=== PATIENT | female | born 1975 | race Caucasian/White ===

== ENCOUNTER 2017-04-12 11:15 | Emergency (ER) | payer OTHER ==
[~2017-04-12] VITALS: Ht 165.1 cm; Wt 115.0 kg
[2017-04-12 11:23] VITALS: TEMP 37.5; Ht 165.1 cm; Wt 115.0 kg
--- NOTE | 2017-04-12 11:52 | DIAGNOSTIC IMAGING REPORT ---
CHEST ONE VIEW PORTABLE CLINICAL HISTORY: Atypical chest pain and shortness of breath COMPARISON STUDY: No previous studies for comparison. FINDINGS: The cardiac and mediastinal contours are normal. There is no evidence of focal pulmonary consolidation. There is no evidence of failure. No pleural effusions are visualized.[ IMPRESSION: No active disease in the chest. Electronically signed by: Caleb Prieto M.D. 04/12/2017 11:51 AM Dictated Date/Time: 04/12/2017 11:51 AM
[2017-04-12 11:58] LABS: HEMATOCRIT 40.2 % (37-47); MEAN CELL VOLUME 91.6 fL (80-100); MEAN CORPUSCULAR HEMOGLOBIN 30.3 pg (25-34); MEAN CORPUSCULAR HGB CONC 33.1 g/dl (32-36); MEAN PLATELET VOLUME 9.4 fL (7.4-10.4); PLATELET COUNT 358 K/uL (130-400); RED BLOOD COUNT 4.39 M/uL (4.2-5.4); WHITE BLOOD COUNT 7.82 K/uL (4.8-10.8)
[2017-04-12] MEDS ORDERED: MULT-506 PO (12:07)
[2017-04-12] MEDS ORDERED: VNTHFA/IN INH (12:07)
[2017-04-12] MEDS ORDERED: FEXO1TAB46 PO (12:07)
[2017-04-12 12:11] LABS: PARTIAL THROMBOPLASTIN RATIO 1.1; PROTHROMBIN TIME (PATIENT) 10.6 SECONDS (9.0-12.0)
[2017-04-12 12:14] LABS: CALCIUM 9.2 mg/dl (8.5-10.1); CREATININE 0.96 mg/dl (0.60-1.20); POTASSIUM 3.9 mmol/L (3.5-5.1)
[2017-04-12 12:19] LABS: ALB/GLOB RATIO 0.9 (0.9-2); CKMB/CK RATIO 0.8 (0-3.0)
[2017-04-12 12:23] VITALS: O2SAT 97
[2017-04-12 12:46] LABS: URINE APPEARANCE CLEAR (CLEAR); URINE BILIRUBIN NEG (NEG); URINE COLOR YELLOW; URINE NITRITE NEG (NEG); URINE PH 5.5 (4.5-7.5); URINE SPECIFIC GRAVITY 1.021 (1.000-1.030); UROBILINOGEN NEG (NEG)
[2017-04-12 12:53] LABS: MANUAL MICROSCOPIC REQUIRED? NO; REVIEW REQ? NO
[2017-04-12] MEDS ORDERED: METHYLPREDNISOLONE 125 MG VIAL IV STA (14:59)
[2017-04-12] MEDS ORDERED: PRED50TA PO (15:03)
[2017-04-12] MEDS ORDERED: HYDR5SYP11 PO (15:03)
[2017-04-12] MEDS ORDERED: AZITTAB PO (15:03)
--- NOTE | 2017-04-12 15:07 | EMERGENCY ROOM VISIT NOTE ---
History First contact with patient: 11:40 Chief Complaint: CARDIAC ASSESSMENT Stated Complaint: SOB/EKG CHANGES Nursing Triage Summary: pt went to [facility] for asthma exacerbation pt had chest tightness ekg done and showed abnormal ekg, ems called pt given 4 baby asa pt denies pain has hx of tendonitis every spring and gets left shoulder pain that does radiate down arm denies sob History of Present Illness Patient is a 41-year-old white female with past medical history significant for asthma who presents emergency department for evaluation by ambulance from [facility] for evaluation of EKG changes. Patient reports that her usual allergies have been bothering her for the last month, and exacerbated her asthma slightly. She states she has had a dry, nonproductive cough on and off for about a month. Her cough worsened in the last day. She reported more severe coughing fits, states she is coughing so hard that she feels like she may vomit and is "seeing stars." She had some coughing fits overnight, that left her with some upper back and midsternal soreness which she felt was muscle in nature. He states the cough is dry and nonproductive. She denies any other cold or upper respiratory symptoms. She denies any chest pain. No palpitations. She denies any radiation of pain through to her back. She denies any abdominal pain, nausea, vomiting, diarrhea, stool changes or urinary symptoms or leg pain or swelling. The patient has not traveled recently, no prolonged periods of immobilization and no oral contraceptive use. The patient went to [facility] today due to her increasing cough. She states that they did an EKG and a chest x-ray, and she was sent here because the EKG showed a "heart attack." She was medicated with 4 baby aspirin. Other than the asthma, the patient reports that she is healthy. She denies hypertension, dyslipidemia or diabetes. There is a strong family history of diabetes, and her father has passed from diabetes, heart disease, coronary artery disease and consultations from diabetes. Review of Systems Review of systems as per HPI. All other systems reviewed were negative. 10 systems reviewed. Past Medical/Surgical History Medical Problems: (1) Asthma (2) Seasonal allergies Electronic medical records are reviewed and summarized as above/below. See Problem List. Family History Diabetes mellitus FH: coronary artery disease Hypertension Social History Smoking Status: Former Smoker Marital Status: single Housing Status: lives with family Occupation Status: employed Current/Historical Medications Scheduled Azithromycin (Zithromax Z-Garry), 0 PO UD Fexofenadine Hcl (Ana), 180 MG PO DAILY Multivitamin (Multivitamin), 1 TAB PO DAILY Prednisone (Prednisone), 50 MG PO DAILY Scheduled PRN Albuterol Hfa (Ventolin Hfa), 2 PUFFS INH Q6H PRN for Shortness of Breath Hydrocodone W/ Homatropine (Hycodan 5/1.5MG 5 Ml), 10 ML PO Q4H PRN for Cough Allergies Coded Allergies: Cyclobenzaprine (Verified Allergy, Unknown, depression, 04/12/17) Physical Exam Vital Signs Date Time Temp Pulse Resp B/P Pulse Ox O2 Delivery O2 Flow Rate FiO2 04/12/17 15:37 90 20 152/81 100 04/12/17 14:18 98 20 137/85 99 04/12/17 13:01 94 04/12/17 12:33 95 20 154/86 96 Room Air 04/12/17 12:32 91 20 154/86 99 Room Air 04/12/17 12:23 97 Room Air 04/12/17 11:29 99 04/12/17 11:23 100 Room Air 04/12/17 11:23 37.5 94 20 156/99 99 Room Air Physical Exam CONSTITUTIONAL: Patient is an overweight 41-year-old white female who is awake and alert and in no acute distress. No audible wheezing or conversational dyspnea noted. EYES: Pupils equal, round, reactive to light and accommodation. EOMs intact without nystagmus. Sclera are anicteric. ENT: Tympanic membranes intact, with normal landmarks. External canals are clear. Oral and nasopharynx are clear. Mucous membranes are moist, no lesions , tongue and gums appear normal. NECK: Supple without lymphadenopathy. No thyromegaly. No meningeal signs. Full active range of motion without discomfort. CARDIOVASCULAR: Regular rate and rhythm, with normal S1 and S2, no murmur or gallop or rub is heard. No carotid bruits auscultated. No JVD. Peripheral pulses easy to palpable. RESPIRATORY: Breath sounds equal and clear to auscultation without wheezes, rales, or rhonchi heard. Full and equal chest expansion without accessory muscle use or retractions. GI: Bowel sounds are present. Abdomen is soft, nontender, nondistended. No organomegaly. No pulsatile masses. No guarding or rebound. MUSCULOSKELETAL: Full range of motion of extremities x 4 with good strength. No cyanosis, edema, joint tenderness or swelling. No deformity. INTEGUMENTARY: No lesions or rash, normal skin turgor. NEUROLOGICAL: Alert, oriented, and cooperative. Cranial nerves, sensation and strength grossly intact. Pupils round, equal, and react to light, EOMs are full. LYMPH: No lymphadenopathy. Medical Decision & Procedures ER Provider Diagnostic Interpretation: CHEST ONE VIEW PORTABLE CLINICAL HISTORY: Atypical chest pain and shortness of breath COMPARISON STUDY: No previous studies for comparison. FINDINGS: The cardiac and mediastinal contours are normal. There is no evidence of focal pulmonary consolidation. There is no evidence of failure. No pleural effusions are visualized. IMPRESSION: No active disease in the chest. Laboratory Results 04/12/17 11:45 04/12/17 11:45 Test 04/12/17 11:45 04/12/17 11:52 04/12/17 12:30 Red Blood Count 4.39 M/uL (4.2-5.4) Mean Corpuscular Volume 91.6 fL (80-100) Mean Corpuscular Hemoglobin 30.3 pg (25-34) Mean Corpuscular Hemoglobin Concent 33.1 g/dl (32-36) RDW Standard Deviation 45.0 fL (36.4-46.3) RDW Coefficient of Variation 13.4 % (11.5-14.5) Mean Platelet Volume 9.4 fL (7.4-10.4) Erythrocyte Sedimentation Rate 54 mm/hr (0-21) Prothrombin Time 10.6 SECONDS (9.0-12.0) Prothromb Time International Ratio 1.0 (0.9-1.1) Activated Partial Thromboplast Time 29.6 SECONDS (21.0-31.0) Partial Thromboplastin Ratio 1.1 Anion Gap 7.0 mmol/L (3-11) Est Creatinine Clear Calc Drug Dose 95.7 ml/min Estimated GFR () 84.0 Estimated GFR (Non- 72.4 BUN/Creatinine Ratio 21.0 (10-20) Calcium Level 9.2 mg/dl (8.5-10.1) Total Bilirubin 0.6 mg/dl (0.2-1) Aspartate Amino Transf (AST/SGOT) 17 U/L (15-37) Alanine Aminotransferase (ALT/SGPT) 28 U/L (12-78) Alkaline Phosphatase 105 U/L (45-117) Total Creatine Kinase 175 U/L (26-192) Creatine Kinase MB 1.4 ng/ml (0.5-3.6) Creatine Kinase MB Ratio 0.8 (0-3.0) Total Protein 8.0 gm/dl (6.4-8.2) Albumin 3.7 gm/dl (3.4-5.0) Globulin 4.3 gm/dl (2.5-4.0) Albumin/Globulin Ratio 0.9 (0.9-2) Thyroid Stimulating Hormone (TSH) 2.630 uIu/ml (0.300-4.500) Bedside D-Dimer 297 ng/mlFEU (0-450) Bedside Troponin I 0.000 ng/ml (0-0.045) Urine Color YELLOW Urine Appearance CLEAR (CLEAR) Urine pH 5.5 (4.5-7.5) Urine Specific [place] 1.021 (1.000-1.030) Urine Protein NEG (NEG) Urine Glucose (UA) NEG (NEG) Urine Ketones NEG (NEG) Urine Occult Blood NEG (NEG) Urine Nitrite NEG (NEG) Urine Bilirubin NEG (NEG) Urine Urobilinogen NEG (NEG) Urine Leukocyte Esterase NEG (NEG) Medications Administered Medications (Trade) Dose Ordered Sig/Michelle Route Start Time Stop Time Status Last Admin Dose Admin Methylprednisolone Sodium Succinate (Solu-Medrol IV) 125 mg NOW STAT IV 04/12/17 14:59 04/12/17 15:00 DC 04/12/17 15:07 125 MG ECG Indication: chest pain, SOB/dyspnea Rate (beats per minute): 94 Rhythm: normal sinus Findings: no acute ischemic change, other (left anterior fascicular block, possible septal, lateral and inferior infarcts, age undetermined.) Change: EKG #2 performed at 1415 confirmed normal sinus rhythm at 89 beats per minute, with similar pattern, left anterior fascicular block, possible septal infarct, age undetermined. ED Course The patient was seen and evaluated as above. She old records were reviewed. She presented to an urgent care for evaluation of an asthma exacerbation, and was found to have an abnormal EKG. The patient does not have any old EKGs available for comparison. IV lock was initiated and laboratory studies were collected. EKG was performed here, and reviewed with Dr. Dumont, who agreed , and ED workup was discussed. Patient was placed on a pvc monitor. She had already received aspirin. Laboratory studies were collected including CBC, CMP, coags, cardiac enzymes, sedimentation rate, TSH and [id number] troponin. Chest x-ray was obtained and was unremarkable. Laboratory studies revealed a normal white count at 7800, slight nonspecific elevation of her sedimentation rate at 54, coags are unremarkable. Chemistries are without significant abnormality. Liver functions are not elevated. TSH is indicative of a euthyroid state. D-dimer was performed and was within normal limits, given low risk factors for PE and a normal d-dimer, further workup for PE was not pursued. Urinalysis was clear. 0 and 90 minute troponins are negative. All laboratory and diagnostic imaging studies were reviewed with attending physician, and discussed with cardiology, Dr. Rogers, who also independently reviewed the patient's EKGs. He did not feel that she required admission for her EKG changes, but agreed with cardiology follow up. An appointment was made with [facility] cardiology for next week. With regards to the patient's primary presented attending complaints, including cough and asthma exacerbation, she was medicated with Solu-Medrol 125 mg IV. She has an albuterol inhaler at home and was encouraged to continue this. She will be placed on a short course of oral prednisone. She was given a prescription for Hycodan to use as needed for cough. She was also given a prescription for a Z-Garry if she does not find that her symptoms are improving after being on the steroids for the next couple of days. Differential diagnosis includes acute myocardial infarction, acute coronary syndrome, myocarditis, pericarditis, bronchitis, pulmonary embolism, pneumonia, pneumothorax, cardiomyopathy, congestive heart failure, anemia , COPD/asthma exacerbation, musculoskeletal, anxiety, costochondritis, among others. Medical Decision See ED course. Impression Primary Impression: Asthma exacerbation Additional Impression: Abnormal EKG Departure Information Prescriptions Azithromycin (ZITHROMAX Z-GARRY) 250 Mg Tab 0 PO UD, #1 PKT 2 TABS DAY 1, THEN 1 TAB DAILY FOR 4 DAYS Prov: Kate Fuentes PA 04/12/17 Hydrocodone W/ Homatropine (HYCODAN 5/1.5MG 5 ML) 1 Syp Syp 10 ML PO Q4H Y for Cough, #100 ML For Initial Treatment Prov: Kate Fuentes PA 04/12/17 Prednisone (Prednisone) 50 Mg Tab 50 MG PO DAILY for 4 Days, #4 TAB Prov: Kate Fuentes PA 04/12/17 Referrals Zhanna Villagomez C.R.N.P (PCP) Patient Instructions My [facility] Additional Instructions Prednisone 50mg: Once daily until the prescription is finished. Start on Saturday morning. It is best to take this earlier in the day as some patients note occasional difficulty falling asleep when taken in the late evening. Albuterol Inhaler: Take 2 puffs every 4 hours as needed for cough/wheezing/ shortness of breath. Ibuprofen(Motrin, Advil) may be used for fever or pain. Use 600mg every six hours as needed. Take with food. Avoid using more than 2400mg in a 24 hour period. Do not use 2400mg per day for more than three consecutive days without physician direction. Prolonged inappropriate use can lead to stomach upset or ulcers. This is available over the counter and typically comes in 200mg tablets. (AND/OR) Acetaminophen(Tylenol) may be used for fever or pain. Use 1000mg every eight hours as needed. Avoid using more than 3000mg in a 24 hour period. This is available over the counter. Hycodan cough syrup: use 5-10 mL's every 4-6 hours only as needed for severe cough. It is best for use at night since it will cause sedation. This is a narcotic medication. Avoid alcohol, operating machinery or dangerous equipment, working on ladders or roofs, DRIVING, important decision making, or situations where being under the influence may be dangerous. It is recommended to use an [id number] stool softener such as Colace, 100mg twice daily while taking this medication to avoid constipation. Read all the package inserts or medication information paperwork provided. If you have any questions or concerns call your primary provider, pharmacist or the ER for assistance. Rest and drink plenty of fluids. Avoid strenuous activity until your symptoms resolve and your breathing returns to normal. Continue current medications. Return to the ER for chest pain, difficulty breathing, persistent fevers, vomiting, worsening of your condition, or as needed Follow-up with your primary care provider next week for recheck of your current condition. Follow-up with cardiology as arranged. If your symptoms are not improving on the prednisone after 2-3 days, still and take the prescription for azithromycin. Azithromycin(Zithromax) : Take as instructed for 5 days. All antibiotics can cause diarrhea. If this occurs and you feel worse or it does not resolve in 1- 2 days follow up with your doctor or return to the Emergency Department as this could be signs of serious underlying problems. Any medication can cause an allergic reaction, stop the pills immediately and return to the ER for rash, hives, breathing difficulties, or swelling. Problem Qualifiers
[2017-04-12 15:37] VITALS: BP 152/81; PULSE 90; O2SAT 100
== END 2017-04-12 15:40 | disposition home or self-care (01) ==
LOC: EDBD 11:15 → C.EDC 11:16
DX: J45.901 Unspecified asthma with (acute) exacerbation (principal); R94.31 Abnormal electrocardiogram [ECG] [EKG]; Z79.899 Other long term (current) drug therapy; Z87.891 Personal history of nicotine dependence; Z88.8 Allergy status to other drugs, medicaments and biological substances; Z83.3 Family history of diabetes mellitus; Z82.49 Family history of ischemic heart disease and other diseases of the circulatory system

== ENCOUNTER → 2018-02-13 | Outpatient (CLI) | payer BC ==
[~2018-02-13] MED LIST: FEXO1TAB46 PO; MULT-506 PO; VNTHFA/IN INH
--- NOTE | 2018-02-13 15:17 | MAMMOGRAPHY REPORT ---
BILATERAL FIRST EVER DIGITAL SCREENING MAMMOGRAM TOMOSYNTHESIS WITH CAD: 02/13/2018 CLINICAL HISTORY: Routine screening. Baseline exam. TECHNIQUE: Breast tomosynthesis in addition to standard 2D mammography was performed. Current study was also evaluated with a Computer Aided Detection (CAD) system. COMPARISON: No prior exams were available for comparison. BREAST COMPOSITION: There are scattered areas of fibroglandular density in both breasts. FINDINGS: No suspicious masses, calcifications, or areas of architectural distortion are noted in ei ther breast. IMPRESSION: ACR BI-RADS CATEGORY 1: NEGATIVE There is no mammographic evidence of malignancy. A 1 year screening mammogram is recommended. The pa tient will receive written notification of the results. Approximately 10% of breast cancers are not detected with mammography. A negative mammographic report should not delay biopsy if a clinically suggestive mass is present. Beckie Sousa M.D. ah/:02/13/2018 13:20:57 Training And Development Professional: Sara SINGH)([place]), [facility] letter sent: Normal 1/2 BI-RADS Code: ACR BI-RADS Category 1: Negative
== END | disposition home or self-care (01) ==
LOC: C.MAMM 12:53
PROVIDERS: ATTEND Nurse Practitioner Family
DX: Z12.31 Encounter for screening mammogram for malignant neoplasm of breast (principal)

== ENCOUNTER → 2018-02-27 | Outpatient (CLI) | payer BC ==
--- NOTE | 2018-02-27 15:00 | DIAGNOSTIC IMAGING REPORT ---
CHEST 2 VIEWS ROUTINE CLINICAL HISTORY: SHORTNESS OF BREATH dyspnea COMPARISON STUDY: 04/12/2017 FINDINGS: The bones soft tissues and hemidiaphragms are normal. The cardiomediastinal silhouette is normal. The lungs are clear. The pulmonary vasculature is normal. IMPRESSION: Negative chest. The above report was generated using voice recognition software. It may contain grammatical, syntax or spelling errors. Electronically signed by: Timo Wilson M.D. 02/27/2018 2:58 PM Dictated Date/Time: 02/27/2018 2:58 PM
== END | disposition home or self-care (01) ==
LOC: C.RAD1850 14:41
PROVIDERS: ATTEND Student in an Organized Health Care Education/Training Program
DX: R06.02 Shortness of breath (principal)